=== PATIENT | male | born 1940 | race Caucasian/White ===

== ENCOUNTER 2016-10-29 06:07 | Inpatient (IN) | payer MEDICARE ==
[2016-10-19 16:52] LABS: HEMATOCRIT 32.1 % (40.0-51.0); HEMOGLOBIN 11.1 g/dL (13.6-17.8)
[2016-10-19 17:04] LABS: CALCIUM, SERUM 9.8 MG/DL (8.5-10.4); CHLORIDE, SERUM 100 MMOL/L (96-112); CO2 (CARBON DIOXIDE) 26 MMOL/L (24-34); CREATININE 2.19 MG/DL (0.70-1.30); GFR AFRICAN AMERICAN 33 ML/MIN (>=60); GFR NON AFRICAN AMERICAN 28 ML/MIN (>=60); GLUCOSE, SERUM 104 MG/DL (60-99); POTASSIUM, SERUM 4.6 MMOL/L (3.5-5.3); SODIUM, SERUM 136 MMOL/L (135-148)
[2016-10-19 17:08] LABS: BUN (BLOOD UREA NITROGEN) 24 MG/DL (6-23)
--- NOTE | ~2016-10-29 | OP ---
Record Of Operation [facility] [address] [place]. [address] NAME: MARY JAVED III : 42 STATUS : ADM IN [facility]#: [id number] AGE: 76 ADM/REG DATE : 10/29/16 MR#: [id number] REPORT SERV DATE: 10/30/16 DICTATED BY: ALEJANDRO PALAFOX DATE: 10/29/16 REPORT STATUS : Draft TRANSCRIBED BY: MODL DATE: 10/29/16 DATE OF PROCEDURE: 10/29/2016 PREOPERATIVE DIAGNOSES: 1. Possible recurrent ventral incisional hernia. 2. 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 POSTOPERATIVE DIAGNOSES: 1. No ventral incisional hernia. 2. Erosion of small bowel into previously placed hernia mesh. PROCEDURE: Exploratory laparotomy, enterolysis with removal of previously placed polypropylene hernia mesh and small bowel resection. SURGEON: Alejandro Palafox M.D. DESCRIPTION OF OPERATIVE PROCEDURE: The patient was brought to the operating suite, placed in a supine position, underwent satisfactory general endotracheal anesthesia. The skin of the abdomen was scrubbed, prepped, and draped in usual sterile fashion. Previous surgeries have included those for perforated colon with colostomy and reanastomosis as well as a mesh repair of a ventral incisional hernia with polypropylene mesh. The patient had presented with a mass in the central abdomen consistently with recurrent hernia or involvement of the intestine with previous hernia mesh. Midline incision was made dissecting through skin and subcutaneous tissue. In the central aspect of the incision, there was some tissue reaction and edema. Eventually, I was able to dissect through the muscular aponeurotic fascia below the lower edge of the previously placed polypropylene mesh and eventually into the peritoneal cavity. The mesh had been placed in an "underlay" on the peritoneal surface of the midline rectus sheath. Evaluation of the mesh revealed dense adherence of a loop of small bowel on its antimesenteric border to the underneath surface of the mesh with another loop of small bowel adhered to this antimesenteric border. Initially, the mesh was excised from the posterior rectus sheath using cautery and tedious enterolysis was performed to remove the omentum and any other small bowel off the mesh. An antimesenteric loop of small bowel was adherent to the mesh. This was taken down also and showed a serosal tear, this was repaired with interrupted imbricating sutures of 3-0 silk. The biggest problem was one loop of small bowel densely adherent to the mesh with the mesh actually growing into the lumen of the bowel. The small bowel was freed up until its adherence to the mesh and then proximal and distal transection of the small bowel was performed with a CANDIS 75 device and the mesentery taken down between free ties of 2-0 Vicryl. The bowel continuity was reestablished and stapled in [id number] fashion using the same CANDIS 75 linear stapler placed through the enterotomies creating the antimesenteric portions of the proximal and distal bowel. Stay suture of 2-0 silk had been placed. A 75 mm side-to side anastomosis was performed. Enterotomies created for the insertion of the CANDIS device Record Of Operation [address] [place]. [address] NAME: MARY JAVED III : 42 STATUS : ADM IN PAT#: [id number] AGE: 76 ADM/REG DATE : 10/29/16 MR#: [id number] REPORT SERV DATE: 10/30/16 DICTATED BY: ALEJANDRO PALAFOX DATE: 10/29/16 REPORT STATUS : Draft TRANSCRIBED BY: ELIDA DATE: 10/29/16 were closed with a TA 55 device. The mesentery was reapproximated with running 2-0 Vicryl. The mesh with its attached bowel was given to Dr. Rollins, the pathologist, who opened it revealing mesh ingrowth into the bowel lumen with a fecalith adherent to the mesh. The peritoneal cavity was irrigated generously, and due to the contamination, attempts at further mesh repair were not performed. The patient actually had some fairly healthy midline fascia, and I decided to the approximate this primarily with multiple interrupted [id number] sutures of 0-Ethibond. Subcutaneous tissue was irrigated and closed in layers with interrupted 3-0 Vicryl and then a running subcuticular stitch of 4-0 Vicryl for the skin. Dermabond skin adhesive placed. Following this, Prevena wound VAC placed. The patient tolerated the procedure well and was returned to PACU in stable condition. Termination procedure, sponge, needle, lap, and instrument counts were correct x3. ESTIMATED BLOOD LOSS: 20-25 mL. WR/MODL Alejandro Palafox M.D. / [id number] CC: Sherine Castro M.D.
--- NOTE | ~2016-10-29 | DS ---
Discharge Summary [facility] [address] [place]. [address] NAME: MARY JAVED III : 42 STATUS : DIS IN PAT#: [id number] AGE: 76 ADM/REG DATE : 10/29/16 MR#: [id number] REPORT SERV DATE: 11/12/16 DICTATED BY: ALEJANDRO PALAFOX DATE: 11/11/16 REPORT STATUS : Draft TRANSCRIBED BY: MODGenesis DATE: 11/11/16 Data Collection from hospitalization DISCHARGE DIAGNOSES: 1. 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 2. Hypertension. 3. Asthma. 4. History of basal cell carcinoma. 5. Erectile dysfunction. 6. Fibromyalgia. 7. Gastroesophageal reflux disease. 8. Hyperlipidemia. 9. History of myocardial infarction. 10.History of prostate disease. 11.Former smoker. CONSULTATIONS: None. PROCEDURES PERFORMED: Exploratory laparotomy, enterolysis, and removal of previously placed polypropylene hernia mesh, and small bowel resection on 10/29/2016. PATHOLOGY: Small bowel segmental resection - intestinal obstruction secondary to mesh migration, bowel perforation and intraluminal obstructing mass, status of bowel margins free, adjacent reactive mucosal hyperplasia/inflammatory changes (no malignancy or dysplasia). MEDICATIONS: Tenormin 50 mg every morning, Astelin two sprays nasally twice a day, Caltrate plus D 600 mg daily, Temovate 30 g topically as needed, Clarinex 5 mg every morning, Valium 2 mg three times a day as needed, Cardura 2 mg twice a day, Proscar 5 mg every morning, Flonase nasal spray two sprays nasally daily, fish oil 1200 mg daily, Zantac 150 mg twice a day, triamcinolone 1 g topically daily as needed, ketoconazole one application topically daily, and Diovan 80 mg twice a day. CONDITION AT DISCHARGE: Stable. DISPOSITION: The patient was discharged home on a regular diet with activities as instructed. He would follow up with me on 11/16/2016. HOSPITAL COURSE: This is a 76-year-old man who has a hernia that was located ventral/incisional. It was described as chronic and worsening. The symptom had been ongoing. The symptoms started many years ago. Pertinent findings included a bulge in the abdominal wall and imaging showed abdominal wall defect. He had a CT scan of the abdomen on 08/27/2016 that showed abnormal soft-tissue mass, anterior abdomen under the umbilicus. Treatment options were discussed and it was elected to proceed with surgical intervention. He was admitted to the hospital at this time for further evaluation and treatment. Upon admission, he was taken to the operating room where he underwent the above-mentioned procedure. He tolerated this well, and there were no complications. On postop day #1, he Discharge Summary [facility] [address] [place]. [address] NAME: MARY JAVED III : 42 STATUS : DIS IN PAT#: [id number] AGE: 76 ADM/REG DATE : 10/29/16 MR#: [id number] REPORT SERV DATE: 11/12/16 DICTATED BY: ALEJANDRO PALAFOX DATE: 11/11/16 REPORT STATUS : Draft TRANSCRIBED BY: ELIDA DATE: 11/11/16 did have some nausea. He did have some belching. IV fluids were continued. Over the next couple of days, he said he was feeling better. He did have a temperature spike and then became afebrile. The wound VAC remained in place. His abdomen was soft. Vega catheter was removed. Discharge planning was performed. On 11/01/2016, his white count was 9.7. Creatinine level was 1.89. He did have a few bowel movements. He was passing flatus. He was voiding well after the Vega catheter was removed. Discharge instructions were given. Due to his improved and stable condition, he was discharged home with the above-stated instructions. Information collected by: Makenzie Little I submit the above information as my discharge summary. SELENA/ELIDA Alejandro Palafox M.D. / [id number] CC: Sherine Castro M.D.
[~2016-10-29 06:07] MED LIST: ASTELIN NAS; ATEN50 PO; CALTRA600D PO; CARDU2 PO; CELEBREX2 PO; CLARINEX5 MG PO; DIOV80 PO; FISH OIL1200 MG PO; FLONASE NAS; KETOCONAZOLE 2% TOP; LEXAPRO10 PO; LOPID6 PO; LYRICA50 PO; PROSCAR5 PO; TEMOVATE CREAM30 GM TOP; TRIAMCINOLONE C80 GM TOP; ULTRAM50 PO; V2 PO; ZANTAC150 MG PO; [UNRECOGNIZED DRUG - OTHER] PO
[2016-10-30 08:11] LABS: BASOPHILS 0.1 %; BASOPHILS ABSOLUTE 0.01 10/3/uL (0.0-0.16); EOSINOPHILS 0 %; HEMOGLOBIN 9.6 g/dL (13.6-17.8); IMMATURE GRANULOCYTES 0.2 %; IMMATURE GRANULOCYTES ABSOLUTE 0.02 10/3/uL (0.0-0.11); LYMPHOCYTES 7.8 %; LYMPHOCYTES ABSOLUTE 0.71 10/3/uL (0.67-4.30); MEAN CORPUS HGB CONC 35.2 g/dL (32.0-36.0); MEAN CORPUSCULAR HEMOGLOB 37.1 pg (26.0-34.0); MEAN CORPUSCULAR VOLUME 105.4 fL (80-100); MEAN PLATELET VOLUME 10.3 fL (9.2-13.0); MONOCYTES 6.6 %; NEUTROPHILS 85.3 %; NEUTROPHILS ABSOLUTE 7.72 10/3/uL (2.02-8.40); RED CELL COUNT 2.59 10/6/uL (4.7-6.1); WHITE BLOOD CELLS 9.1 10/3/uL (4.5-10.5)
[2016-10-30 08:15] LABS: HEMATOCRIT 27.3 % (40.0-51.0); MANUAL DIFF NO %; PLATELET COUNT 163 10/3/uL (150-400)
[2016-10-30 08:33] LABS: ALKALINE PHOSPHATASE 47 U/L (45-117); CHLORIDE, SERUM 102 MMOL/L (96-112); CO2 (CARBON DIOXIDE) 25 MMOL/L (24-34); CREATININE 2.01 MG/DL (0.70-1.30); GFR AFRICAN AMERICAN 37 ML/MIN (>=60); GFR NON AFRICAN AMERICAN 32 ML/MIN (>=60); GLUCOSE, SERUM 111 MG/DL (60-99); POTASSIUM, SERUM 4.3 MMOL/L (3.5-5.3); SGOT(AST) 15 U/L (5-40); SGPT(ALT) 15 U/L (5-65); SODIUM, SERUM 138 MMOL/L (135-148); TOTAL BILIRUBIN 0.6 MG/DL (0-1.2)
[2016-10-30 08:34] LABS: A/G RATIO 0.8 (0.7-1.9); ALBUMIN 2.7 G/DL (3.5-5.0); BUN (BLOOD UREA NITROGEN) 17 MG/DL (6-23); CALCIUM, SERUM 7.7 MG/DL (8.5-10.4); GLOBULIN 3.2 G/DL (2.5-4.1); TOTAL PROTEIN 5.9 G/DL (6.0-8.5)
[2016-10-31 05:45] LABS: BASOPHILS 0.1 %; BASOPHILS ABSOLUTE 0.01 10/3/uL (0.0-0.16); EOSINOPHILS 0.6 %; EOSINOPHILS ABSOLUTE 0.05 10/3/uL (0.0-0.53); HEMATOCRIT 25.3 % (40.0-51.0); HEMOGLOBIN 8.8 g/dL (13.6-17.8); IMMATURE GRANULOCYTES 0.4 %; IMMATURE GRANULOCYTES ABSOLUTE 0.03 10/3/uL (0.0-0.11); LYMPHOCYTES 8.6 %; LYMPHOCYTES ABSOLUTE 0.74 10/3/uL (0.67-4.30); MEAN CORPUS HGB CONC 34.8 g/dL (32.0-36.0); MEAN CORPUSCULAR HEMOGLOB 36.4 pg (26.0-34.0); MEAN CORPUSCULAR VOLUME 104.5 fL (80-100); MEAN PLATELET VOLUME 10.3 fL (9.2-13.0); MONOCYTES 8.2 %; NEUTROPHILS 82.1 %; NEUTROPHILS ABSOLUTE 7.03 10/3/uL (2.02-8.40); PLATELET COUNT 159 10/3/uL (150-400); RBC DISTRIBUTION WIDTH 14.1 % (12.0-16.0); RED CELL COUNT 2.42 10/6/uL (4.7-6.1); WHITE BLOOD CELLS 8.6 10/3/uL (4.5-10.5)
[2016-10-31 05:49] LABS: MANUAL DIFF NO %
[2016-10-31 05:59] LABS: BUN (BLOOD UREA NITROGEN) 15 MG/DL (6-23); CALCIUM, SERUM 7.5 MG/DL (8.5-10.4); CHLORIDE, SERUM 103 MMOL/L (96-112); CO2 (CARBON DIOXIDE) 23 MMOL/L (24-34); CREATININE 2.07 MG/DL (0.70-1.30); GFR AFRICAN AMERICAN 35 ML/MIN (>=60); GFR NON AFRICAN AMERICAN 30 ML/MIN (>=60); GLUCOSE, SERUM 112 MG/DL (60-99); SODIUM, SERUM 135 MMOL/L (135-148)
[2016-11-01 06:57] LABS: HEMOGLOBIN 8.2 g/dL (13.6-17.8); MEAN CORPUS HGB CONC 36.3 g/dL (32.0-36.0); MEAN CORPUSCULAR HEMOGLOB 37.1 pg (26.0-34.0); MEAN CORPUSCULAR VOLUME 102.3 fL (80-100); MEAN PLATELET VOLUME 9.2 fL (9.2-13.0); PLATELET COUNT 168 10/3/uL (150-400); RBC DISTRIBUTION WIDTH 13.9 % (12.0-16.0); RED CELL COUNT 2.21 10/6/uL (4.7-6.1); WHITE BLOOD CELLS 9.7 10/3/uL (4.5-10.5)
[2016-11-01 07:13] LABS: HEMATOCRIT 22.6 % (40.0-51.0)
[2016-11-01 07:15] LABS: A/G RATIO 0.7 (0.7-1.9); ALBUMIN 2.3 G/DL (3.5-5.0); ALKALINE PHOSPHATASE 51 U/L (45-117); BUN (BLOOD UREA NITROGEN) 12 MG/DL (6-23); CALCIUM, SERUM 8.5 MG/DL (8.5-10.4); CHLORIDE, SERUM 104 MMOL/L (96-112); CO2 (CARBON DIOXIDE) 23 MMOL/L (24-34); CREATININE 1.89 MG/DL (0.70-1.30); GFR AFRICAN AMERICAN 39 ML/MIN (>=60); GFR NON AFRICAN AMERICAN 34 ML/MIN (>=60); GLOBULIN 3.4 G/DL (2.5-4.1); GLUCOSE, SERUM 111 MG/DL (60-99); POTASSIUM, SERUM 3.8 MMOL/L (3.5-5.3); SGOT(AST) 26 U/L (5-40); SGPT(ALT) 13 U/L (5-65); SODIUM, SERUM 135 MMOL/L (135-148); TOTAL BILIRUBIN 0.5 MG/DL (0-1.2); TOTAL PROTEIN 5.7 G/DL (6.0-8.5)
[2016-11-01 08:28] LABS: EOSINOPHILS 1 %; LYMPHOCYTES 6 %; LYMPHOCYTES ABSOLUTE (CALC) 0.58 10/3/uL (0.67-4.30); MACROCYTES 1+ (5-10/OIF) (0-5/OIF); MONOCYTES 9 %; MONOCYTES ABSOLUTE (CALC) 0.87 10/3/uL (0.21-1.20); NEUTROPHILS ABSOLUTE (CALC) 8.15 10/3/uL (2.02-8.40); PLATELET ESTIMATE ADQ (ADEQUATE); SEGMENTED NEUTROPHIL (0) 84 %; TOTAL NUCLEATED CELLS 100
== END 2016-11-01 20:50 | disposition home or self-care (01) | DRG 909 ==
LOC: SDC/OF 06:07 → PACU 11:47 → 5SO 15:19
PROVIDERS: Specialist
PROC: 0DB80ZZ Excision of Small Intestine, Open Approach (ICD-10-PCS; principal; 2016-10-29 07:45)
PROC: 0WPF0JZ Removal of Synthetic Substitute from Abdominal Wall, Open Approach (ICD-10-PCS; 2016-10-29 07:45)
DX: T85.79XA Infection and inflammatory reaction due to other internal prosthetic devices, implants and grafts, initial encounter (principal); I25.10 Atherosclerotic heart disease of native coronary artery without angina pectoris; Z90.49 Acquired absence of other specified parts of digestive tract; Z98.890 Other specified postprocedural states; Z95.5 Presence of coronary angioplasty implant and graft; Z87.891 Personal history of nicotine dependence; Z79.899 Other long term (current) drug therapy
CPT/HCPCS: 36415; 80048; 80053; 83735; 85007; 85014; 85018; 85025; 85027; 87015; 87070; 87075; 87077; 87102; 87116; 87186; 87205; 87641; 88307; 93005; A9270-GY; J0690; J1956; J2250; J2270; J2405; J2543; J2710; J2795; J3010